=== PATIENT | female | born 2000 | race Caucasian/White ===

== ENCOUNTER 2021-10-25 13:23 | Emergency (ER) | payer MEDICAID ==
[~2021-10-25] VITALS: Ht 157.5 cm; Wt 79.0 kg
[2021-10-25] MEDS ORDERED: SODIUM CHLORIDE 0.9% 1,000 ML IV ONE (13:45)
[2021-10-25 14:37] LABS: *AMPHETAMINES SCREEN URINE NEGATIVE (NEGATIVE); *BARBITURATES SCREEN URINE NEGATIVE (NEGATIVE); *BENZODIAZEPINES SCREEN URINE NEGATIVE (NEGATIVE); *COCAINE SCREEN URINE NEGATIVE (NEGATIVE); CANNABINOID URINE SCREEN NEGATIVE (NEGATIVE); METHADONE URINE SCREEN NEGATIVE (NEGATIVE); OPIATES URINE SCREEN NEGATIVE (NEGATIVE); PHENCYCLIDINE URINE SCREEN NEGATIVE (NEGATIVE)
[2021-10-25 14:42] LABS: CLARITY URINE CLEAR (CLEAR); COLOR URINE YELLOW (YELLOW); KETONES URINE NEGATIVE (NEGATIVE); LEUKOCYTE ESTERASE URINE TRACE (NEGATIVE); NITRITE URINE NEGATIVE (NEGATIVE); OCCULT BLOOD URINE NEGATIVE (NEGATIVE); PH URINE 7.5 (4.5-8.0); PROTEIN URINE NEGATIVE (NEGATIVE); UROBILINOGEN URINE 0.2 E.U./dL (0.2-1.0)
[2021-10-25 14:59] LABS: CHLORIDE 107 mEq/L (98-107)
[2021-10-25 15:00] LABS: HCG SCREEN NEGATIVE
[2021-10-25 15:10] LABS: ETHANOL BLOOD < 10 mg/dL
[2021-10-25 15:15] LABS: BASOPHILS % 0.4 % (0.0-2.0); EOSINOPHILS % 1.1 % (0.0-5.0); HEMOGLOBIN. 13.3 g/dL (12.0-16.0); LYMPHOCYTES % 47.1 % (20.0-50.0); MEAN CORPUSCULAR HEMOGLOBIN 30.9 pg (28.0-32.0); MEAN CORPUSCULAR VOLUME 92.7 fL (81.0-99.0); MEAN PLATELET VOLUME 10.8 fl (7.4-10.4); MONOCYTES % 7.3 % (2.0-8.0); NEUTROPHILS % 44.1 % (40.0-76.0); PLATELET 195 x1000/uL (130-400); RED BLOOD CELL COUNT 4.31 mill/uL (4.2-5.4); RED CELL DISTRIBUTION WIDTH 12.3 % (11.6-14.6)
[2021-10-25] MEDS ORDERED: NITR-87 MT (16:58)
[2021-10-25] MEDS ORDERED: NITROFURANTOIN 100MG M/M CAPSULE PO ONE (17:00)
[2021-10-25 17:29] VITALS: BP 122/74
== END 2021-10-25 17:31 | disposition home or self-care (01) ==
LOC: ER 13:53
DX: N39.0 Urinary tract infection, site not specified (principal); R55 Syncope and collapse; R53.1 Weakness; R53.83 Other fatigue; Z20.822 Contact with and (suspected) exposure to COVID-19
CPT/HCPCS: 36415; 80053; 80305; 80320; 81003; 83690; 84703; 85025; 87426; 93005; 96360; 96361; 99284; C9803; J7030; G0480

== ENCOUNTER 2022-05-13 20:42 | Emergency (ER) | payer MEDICAID ==
[~2022-05-13] VITALS: Ht 162.6 cm; Wt 79.0 kg
[~2022-05-13 20:42] MED LIST: NITR-87 MT
[2022-05-13 20:47] VITALS: BP 179/93
[2022-05-13 21:22] LABS: BASOPHILS % 0.3 % (0.0-2.0); HEMATOCRIT. 41.4 % (36.0-48.0); HEMOGLOBIN. 14.1 g/dL (12.0-16.0); LYMPHOCYTES % 8.9 % (20.0-50.0); MEAN CORPUSCULAR HEMOGLOBIN 30.7 pg (28.0-32.0); MEAN CORPUSCULAR VOLUME 89.8 fL (81.0-99.0); MEAN PLATELET VOLUME 9.6 fl (7.4-10.4); MONOCYTES % 4.6 % (2.0-8.0); NEUTROPHILS % 86.2 % (40.0-76.0); PLATELET 171 x1000/uL (130-400); RED BLOOD CELL COUNT 4.61 mill/uL (4.2-5.4); RED CELL DISTRIBUTION WIDTH 13.1 % (11.6-14.6)
[2022-05-13 21:44] LABS: CHLORIDE 102 mEq/L (98-107)
[2022-05-13 21:50] LABS: ETHANOL BLOOD < 10 mg/dL
== END 2022-05-13 21:13 | disposition left against medical advice (07) ==
LOC: ER 20:42
DX: Z53.21 Procedure and treatment not carried out due to patient leaving prior to being seen by health care provider (principal)
CPT/HCPCS: 36415; 71045; 80053; 80320; 83880; 84484; 85025; 85379; 93005; G0480

== ENCOUNTER 2022-10-22 20:15 | Emergency (ER) | payer MEDICAID ==
[~2022-10-22] VITALS: Ht 162.6 cm; Wt 79.0 kg
[2022-10-22 20:22] VITALS: O2SAT 98
[2022-10-22] MEDS ORDERED: SODIUM CHLORIDE 0.9% 1,000 ML IV ONE (21:30)
[2022-10-22] MEDS ORDERED: LORAZEPAM 2MG/ML CPJ IV ONE (21:30)
[2022-10-22 21:51] LABS: BASOPHILS % 0.3 % (0.0-2.0); EOSINOPHILS % 0.3 % (0.0-5.0); HEMOGLOBIN. 13.5 g/dL (12.0-16.0); LYMPHOCYTES % 31.8 % (20.0-50.0); MEAN CORPUSCULAR HEMOGLOBIN 31.8 pg (28.0-32.0); MEAN CORPUSCULAR VOLUME 92.2 fL (81.0-99.0); MEAN PLATELET VOLUME 10.6 fl (7.4-10.4); MONOCYTES % 6.3 % (2.0-8.0); NEUTROPHILS % 61.3 % (40.0-76.0); PLATELET 292 x1000/uL (130-400); RED BLOOD CELL COUNT 4.24 mill/uL (4.2-5.4); RED CELL DISTRIBUTION WIDTH 12.6 % (11.6-14.6)
[2022-10-22 22:22] LABS: CHLORIDE 105 mEq/L (98-107)
[2022-10-22 23:50] VITALS: BP 124/70; PULSE 85; RESP 17; TEMP 98.4
== END 2022-10-22 23:53 | disposition home or self-care (01) ==
LOC: ER 20:15
DX: R07.89 Other chest pain (principal)
CPT/HCPCS: 36415; 71045; 80053; 84484; 85025; 96361; 96374; 99284; J7030

== ENCOUNTER 2023-06-05 22:08 | Emergency (ER) | payer MEDICAID ==
[~2023-06-05] VITALS: Ht 162.6 cm; Wt 79.0 kg
[2023-06-05 22:12] VITALS: TEMP 99.1; O2SAT 98
[2023-06-05] MEDS ORDERED: KETOROLAC 60MG/2ML VIAL IM ONE (22:45)
[2023-06-05] MEDS ORDERED: ACETAMINOPHEN 325MG TABLET PO ONE (22:45)
[2023-06-05 23:11] LABS: BASOPHILS % 0.4 % (0.0-2.0); HEMATOCRIT. 38.3 % (36.0-48.0); HEMOGLOBIN. 13.4 g/dL (12.0-16.0); LYMPHOCYTES % 51.3 % (20.0-50.0); MEAN CORPUSCULAR VOLUME 91.3 fL (81.0-99.0); MEAN PLATELET VOLUME 9.7 fl (7.4-10.4); MONOCYTES % 6.2 % (2.0-8.0); NEUTROPHILS % 41.1 % (40.0-76.0); PLATELET 194 x1000/uL (130-400); RED BLOOD CELL COUNT 4.19 mill/uL (4.2-5.4); RED CELL DISTRIBUTION WIDTH 12.8 % (11.6-14.6); WHITE BLOOD COUNT 6.8 x1000/uL (4.5-11.0)
[2023-06-05 23:31] LABS: ALANINE AMINOTRANSFERASE 14 IU/L (10-49); ALBUMIN 4.7 g/dL (3.2-4.8); ASPARTATE AMINOTRANSFERASE 16 IU/L (<34); BILIRUBIN TOTAL 0.9 mg/dL (0.1-1.0); CALCIUM 9.6 mg/dL (8.7-10.4); CARBON DIOXIDE 25 mEq/L (21-32); CHLORIDE 107 mEq/L (98-107); CREATININE 0.6 mg/dL (0.6-1.0); GLUCOSE 112 mg/dL (70-105); POTASSIUM 3.9 mEq/L (3.5-5.1); PROTEIN TOTAL 7.6 g/dL (6.0-8.3); SODIUM 138 mEq/L (136-145); UREA NITROGEN BLOOD 12 mg/dL (9-23)
[2023-06-05 23:33] LABS: TROPONIN I HIGH SENSITIVITY < 4 ng/L (3.0-34)
[2023-06-06 01:00] VITALS: BP 167/105; PULSE 117; RESP 18
[2023-06-06] MEDS ORDERED: ACETAMINOPHEN 325MG TABLET PO NR (01:00)
[2023-06-06] MEDS: KETOROLAC 60MG/2ML VIAL IM NR ×2 (01:00→01:10)
[2023-06-06 01:32] LABS: TROPONIN I HIGH SENSITIVITY < 4 ng/L (3.0-34)
[2023-06-06] MEDS ORDERED: NAPR220C61 MT (02:06)
== END 2023-06-06 02:40 | disposition home or self-care (01) ==
LOC: ER 22:08
DX: R07.89 Other chest pain (principal); F41.9 Anxiety disorder, unspecified; F12.10 Cannabis abuse, uncomplicated
CPT/HCPCS: 99285; 71045; 80053; 83880; 83690; 85025; 85379; 84484 ×2; 36415 ×2; 93005; 96372 ×2; J1885